=== PATIENT | female | born 1970 | race African-American/Black ===

== ENCOUNTER 2023-08-24 11:00 | Outpatient (RCR) | payer OTHER, SELFPAY ==
--- NOTE | 2023-07-09 14:17 | OPREHPOC ---
Outpatient Therapy Plan of Care This is a Multidisciplinary Plan of Care that may contain components documented by all disciplines (PT, OT, and ST.) PT Problem 1 PT Problem #1 Knowledge Deficit PT Goal 1 Goal 1. Patient will perform independent HEP 2. Patient will verbalize urge suppression strategies Target Visit 7 PT Problem 2 PT Problem #2 Pain PT Goal 1 Goal 1. Pain with pelvic exam no more than 1/10 Target Visit 7 PT Problem 3 PT Problem #3 Impaired Functional ADLs PT Goal 1 Goal 1. Patient will report no more than 1 instance of incontinence in a 2 week period Target Visit 7
--- NOTE | 2023-07-09 14:17 | PTOPEVAL1 ---
Assessment and note entered by Yun Coello DPT Evaluation Information Assessment Status Evaluation Subjective Information Pt reports difficulty holding urine. Incontinence with coughing, sneezing, and other activities. Occurs 2 times a day. Volume is significant enough to need to change clothes and wears pads at times . Voids 5 times a day and another 5 times at night . Cannot hold urge to void more than a few minutes , will get incontinence on the way to the bathroom . Denies pain with urination. BM multiple times a day after eating and reports fecal urgency as well . Some pelvic pain with her last pelvic exam, highest pain 8/10 and lowest 0/10. Pt has been 4 times, 4 vaginal deliveries with tearing with her last. Partial hysterectomy and previous ablation. Also reports previous constipation and hemorrhoid issues. Patient goal: get better, not leak urine as often Patient reports pain issues affect her ability to perform work tasks. Reported Pain Level Pain Score 0: Self Report Assessment PT Clinical Summary The patient is presenting to skilled therapy with a history of pelvic pain and mixed urinary incontinence. She presents with significantly increased pelvic floor muscle tone and pain with palpation, as well as decreased hip and core strength. These impairments are contributing to her pain, incontinence, and difficulty with work tasks. She will benefit from therapy to reduce pain and incontinence and improve overall function . Plan of Care Interventions Electrical Stimulation,Hot Pack/Cold Pack,Manual Therapy,Neuro Re-education,Patient/Caregiver Education,Therapeutic Activities,Therapeutic Exercise PT Services Indicated Yes Treatment Frequency and 1 time a week for 6 visits Duration These treatments will address the objective and functional deficits as defined above. The patient will be advanced safely and appropriately in order for the patient to progress towards his/her prior level of function. Additional exercises will be introduced and as well as a comprehensive home exercise program upon discharge, if needed, ?to ensure carryover of functional gains achieved in the clinic. This treatment plan has been reviewed and agreement upon by the patient.
--- NOTE | 2023-08-03 10:01 | PCPTNOTE ---
Patient called to cancel appointment 08/03/23, unknown specifics.
--- NOTE | 2023-08-17 08:56 | PCPTNOTE ---
Patient called to cancel appointment 08/17/23 due to illness.
--- NOTE | 2023-08-24 11:39 | OPREHPOC ---
Outpatient Therapy Plan of Care This is a Multidisciplinary Plan of Care that may contain components documented by all disciplines (PT, OT, and ST.) PT Problem 1 PT Problem #1 Knowledge Deficit PT Goal 1 Goal 1. Patient will perform independent HEP 2. Patient will verbalize urge suppression strategies Target Visit 7 Progress Partially Met PT Problem 2 PT Problem #2 Pain PT Goal 1 Goal 1. Pain with pelvic exam no more than 1/10 Target Visit 7 Progress Partially Met Comment improved to 3/10 PT Problem 3 PT Problem #3 Impaired Functional ADLs PT Goal 1 Goal 1. Patient will report no more than 1 instance of incontinence in a 2 week period Target Visit 7 Progress Partially Met Comment improved to every other day
--- NOTE | 2023-08-24 11:40 | PTOPDC ---
Assessment and note entered by Yun Coello DPT Evaluation Information Assessment Status Discharge Subjective Information Pt reports she feels better with therapy, is not having the pain as often or as bad. Highest pain in last week 6/10 and lowest 0/10. Incontinence is occurring every other day. Pt reports she would like to discharge from therapy this date. Reported Pain Level Pain Score 0: Self Report Assessment PT Clinical Summary The patient has made some progress in therapy. She reports overall decreased pain intensity and frequency and decreased frequency of incontinence. She demonstrates improved hip strength, and improved pelvic floor muscle tone and strength. Due to her progress and also at patient request, will discharge from therapy this visit. She has been educated to continue her HEP and follow up with MD and/or PT as needed. Plan of Care PT Services Indicated No
== END 2023-08-24 13:11 | disposition home or self-care (01) ==
LOC: ANHPT 11:00
PROVIDERS: PCP Pediatrics; Visit Provider Family Medicine
DX: N39.46 Mixed incontinence (principal)
CPT/HCPCS: 97110; 97140; 97161; 97530